=== PATIENT | female | born 1995 | race Two or more races ===

== ENCOUNTER 2024-09-29 18:10 | Emergency (ER) | payer OTHER ==
[~2024-09-29] VITALS: Ht 157.5 cm; Wt 60.8 kg
[2024-09-29] MEDS ORDERED: FOLIC ACID20 MG (18:38)
[2024-09-29 21:04] LABS: BASO % 0.2 % (0.1-1.2); EOS # 0.06 (0.04-0.54); EOS % 1.1 % (0.7-7.0); LYMPH # 1.86 (1.18-3.74); LYMPH % 34.4 % (19.3-53.1); MEAN PLATELET VOLUME 12.30 fl (9.4-12.4); MONO # 0.40 (0.24-0.82); MONO % 7.4 % (4.7-12.5); NEUT # 3.06 (1.56-6.13); NEUT % 56.7 % (34.0-71.1); RED CELL DISTRIBUTION WIDTH 11.8 % (11.6-14.4)
[2024-09-29 21:13] LABS: URINE APPEARANCE Clear; URINE BILIRRUBIN Negative (NEGATIVE); URINE BLOOD Negative; URINE COLOR Yellow; URINE GLUCOSE Negative (NEGATIVE); URINE KETONE Negative (NEGATIVE); URINE LEUKOCYTE Negative; URINE NITRATE Negative; URINE PROTEIN Negative (NEGATIVE); URINE UROBILINOGEN 1.0 E.U./dl
[2024-09-29 21:16] LABS: URINE BACTERIA 370.7 uL (0.0-1933); URINE EPITHELIAL CELLS 5.5 uL (0.0-38.8); URINE RBC 2.7 uL (0.0-20.8); URINE WBC 6.3 uL (0.0-23.2)
[2024-09-29 21:35] LABS: COVID-19 AG NEGATIVE (NEGATIVE)
[2024-09-29 21:39] LABS: URINE CAST 0.14 uL (0.0-1.40)
[2024-09-29 21:56] LABS: ALT/SGPT 20.0 U/L (12-78); AST/SGOT 13.0 U/L (15-37); BILIRUBIN TOTAL 0.25 mg/dL (0.3-1.2); BUN CREA RATIO 21.0 (7.0-25.0); CREATININE SERUM 0.61 mg/dL (0.55-1.02); GFR 115.16; GLOBULINA 3.1 G/DL (2.4-3.5); GLUCOSE FASTING 109.0 mg/dL (65-100); OSMOLALITY SERUM 280.0 MOSM/KG (275-295)
[2024-09-29 22:08] LABS: HCG QUANTITATIVE 104484.0 mUI/mL (1-3)
== END 2024-09-30 01:33 ==
LOC: ER 18:39
PROVIDERS: Preventive Medicine Public Health & General Preventive Medicine
DX: O26.891 Other specified pregnancy related conditions, first trimester (principal); R51.9 Headache, unspecified; Z88.0 Allergy status to penicillin; N80.03 Adenomyosis of the uterus; D72.818 Other decreased white blood cell count; Z20.822 Contact with and (suspected) exposure to COVID-19; Z3A.01 Less than 8 weeks gestation of pregnancy

== ENCOUNTER 2024-10-21 10:22 | Emergency (ER) | payer OTHER ==
[~2024-10-21] VITALS: Ht 157.5 cm; Wt 60.8 kg
[~2024-10-21 10:22] MED LIST: FOLIC ACID20 MG
[2024-10-21] MEDS ORDERED: 0.9 % SODIUM CHLORIDE 1,000 ML IV STA (10:55)
[2024-10-21] MEDS ORDERED: ONDANSETRON HCL 2 MG/ML VIAL IV STA (10:55)
[2024-10-21 12:00] LABS: URINE APPEARANCE Clear; URINE BILIRRUBIN Negative (NEGATIVE); URINE BLOOD Negative; URINE COLOR Yellow; URINE GLUCOSE Negative (NEGATIVE); URINE KETONE 15 (NEGATIVE); URINE LEUKOCYTE Negative; URINE NITRATE Negative; URINE PROTEIN Negative (NEGATIVE); URINE UROBILINOGEN 1.0 E.U./dl
[2024-10-21 12:04] LABS: URINE BACTERIA 281.9 uL (0.0-1933); URINE EPITHELIAL CELLS 4.6 uL (0.0-38.8); URINE RBC 7.9 uL (0.0-20.8); URINE WBC 6.6 uL (0.0-23.2)
[2024-10-21 12:10] LABS: URINE CAST 0.00 uL (0.0-1.40)
[2024-10-21 12:27] LABS: BUN CREA RATIO 13.0 (7.0-25.0); CREATININE SERUM 0.54 mg/dL (0.55-1.02); GFR 132.56; GLUCOSE FASTING 82.0 mg/dL (65-100); OSMOLALITY SERUM 273.0 MOSM/KG (275-295)
[2024-10-21 13:14] LABS: BASO % 0.0 % (0.1-1.2); EOS # 0.01 (0.04-0.54); EOS % 0.2 % (0.7-7.0); LYMPH # 1.41 (1.18-3.74); LYMPH % 28.0 % (19.3-53.1); MEAN PLATELET VOLUME 12.00 fl (9.4-12.4); MONO # 0.38 (0.24-0.82); MONO % 7.6 % (4.7-12.5); NEUT # 3.22 (1.56-6.13); NEUT % 64.0 % (34.0-71.1); RED CELL DISTRIBUTION WIDTH 11.9 % (11.6-14.4)
== END 2024-10-21 16:51 | disposition home or self-care (01) ==
LOC: ER 10:22
PROVIDERS: Emergency Medicine
DX: O21.8 Other vomiting complicating pregnancy (principal); Z3A.08 8 weeks gestation of pregnancy; Z88.0 Allergy status to penicillin

== ENCOUNTER 2025-01-29 15:29 | Outpatient (CLI) | payer OTHER ==
[2025-01-29 15:35] VITALS: BP 123/68
[2025-01-29] MEDS ORDERED: PRENATABS RX T1 EACH PO (15:57)
[2025-01-29 19:30] VITALS: BP 116/73
[2025-01-29] MEDS ORDERED: AMPICILLIN SODIUM 2,000 MG VIAL IV ONE (19:30)
[2025-01-29] MEDS ORDERED: AMPICILLIN SODIUM 1,000 MG VIAL IV SCH (21:00)
== END 2025-01-29 19:25 | disposition home or self-care (01) ==
LOC: OBS/DEL 15:29
PROVIDERS: ATTEND Obstetrics & Gynecology
DX: O26.892 Other specified pregnancy related conditions, second trimester (principal); S30.11XA Contusion of abdominal wall, initial encounter; Z3A.24 24 weeks gestation of pregnancy